=== PATIENT | male | born 1995 | race African-American/Black ===

== ENCOUNTER 2020-10-21 18:04 | Emergency (ER) | payer OTHER ==
[~2020-10-21] VITALS: Ht 200.7 cm; Wt 100.0 kg
[2020-10-21 18:44] LABS: HEMATOCRIT 45.2 % (39.0-50.0); HEMOGLOBIN 13.5 g/dl (14.0-18.0); MEAN CELL VOLUME 78.6 fL CALC (80.0-100.0); MEAN CORPUSCULAR HGB 23.5 pG CALC (26.0-32.0); MEAN CORPUSCULAR HGB CONC 29.9 g/dL CAL (32.0-36.0); NEUT# 8.53 thou/uL (1.82-7.42); RED BLOOD COUNT 5.75 mill/uL (4.70-6.10); RED CELL DISTRI WIDTH 15.2 % (11.5-15.5)
[2020-10-21 18:54] LABS: ALBUMIN 4.4 g/dL (3.2-5.0); ALKALINE PHOSPHATASE 61 u/l (38-126); ANION GAP 11 (6-22 (CALC)); BILIRUBIN, TOTAL 0.3 mg/dL (0.0-1.4); BUN 14 mg/dL (9-20); BUN/CREATININE RATIO 15 (12-20 (CALC)); CARBON DIOXIDE 30 mmol/l (22-30); CHLORIDE 102 mmol/l (95-108); CREATININE 0.9 mg/dL (0.7-1.3); GFR > 60 ML/MIN (>=60 (CALC)); GFR FOR AFR.AMER. > 60 ML/MIN (>=60 (CALC)); POTASSIUM 3.9 mmol/l (3.5-5.1); SGOT/AST 79 u/l (17-59); SODIUM 139 mmol/l (137-146); TOTAL PROTEIN 7.5 g/dL (6.3-8.2)
[2020-10-21] MEDS ORDERED: KEFLEX500 MG PO (20:26)
[2020-10-21] MEDS ORDERED: MOTRIN400 MG/TAB PO (20:26)
[2020-10-21 20:35] VITALS: BP 151/101
== END 2020-10-21 21:18 | DRG 605 ==
LOC: ED 18:04
PROVIDERS: Emergency Medicine
PROC: 0HQBXZZ Repair Right Upper Arm Skin, External Approach (ICD-10-PCS; principal; 2020-10-21)
DX: S51.831A Puncture wound without foreign body of right forearm, initial encounter (principal); S41.031A Puncture wound without foreign body of right shoulder, initial encounter; S01.91XA Laceration without foreign body of unspecified part of head, initial encounter; S31.131A Puncture wound of abdominal wall without foreign body, left upper quadrant without penetration into peritoneal cavity, initial encounter; S31.130A Puncture wound of abdominal wall without foreign body, right upper quadrant without penetration into peritoneal cavity, initial encounter; S21.231A Puncture wound without foreign body of right back wall of thorax without penetration into thoracic cavity, initial encounter; S51.832A Puncture wound without foreign body of left forearm, initial encounter; X99.9XXA Assault by unspecified sharp object, initial encounter; Y92.149 Unspecified place in prison as the place of occurrence of the external cause
CPT/HCPCS: Q9967